=== PATIENT | female | born 1975 | race Caucasian/White ===

== ENCOUNTER → 2021-05-29 | Outpatient (CLI) | payer OTHER ==
--- NOTE | 2021-05-30 02:20 | MR ---
EXAMINATION TYPE: MR brain wo con DATE OF EXAM: 05/29/2021 COMPARISON: None HISTORY: Visual disturbance, recent head injury. Multiplanar multiecho imaging of the brain without contrast. Ventricles and sulci appear normal. There is no mass effect nor midline shift. There is no evidence o f intracranial hemorrhage. There is no evidence of cerebral edema. Cruz-white matter structures have fairly normal signal pattern. There is no evidence of a cortical infarct. There is no evidence of orbital mass. Sella turcica appears normal. Corpus callosum appears normal. B rainstem appears intact. IMPRESSION: Negative MR scan of the brain.
== END | disposition home or self-care (01) ==
LOC: RADMRIMAIN 18:14
PROVIDERS: ATTEND Pediatrics
DX: S09.90XA Unspecified injury of head, initial encounter (principal); H53.8 Other visual disturbances
CPT/HCPCS: 70551

== ENCOUNTER → 2021-05-29 | Outpatient (CLI) | payer OTHER ==
--- NOTE | 2021-05-29 20:02 | XR ---
EXAMINATION TYPE: XR lumbar spine 2 or 3V DATE OF EXAM: 05/29/2021 COMPARISON: NONE HISTORY: Dizziness TECHNIQUE: Review FINDINGS: Lumbar vertebra have normal spacing and alignment. Posterior elements are intact. Sacroilia c joints appear normal. IMPRESSION: Normal lumbar spine exam.
--- NOTE | 2021-05-29 20:04 | XR ---
EXAMINATION TYPE: XR cervical spine comp DATE OF EXAM: 05/29/2021 COMPARISON: NONE HISTORY: Neck pain. Dizziness. TECHNIQUE: 6 views FINDINGS: Cervical vertebra have mild straightening. There is some mild uncovertebral spurring and ri ght side neural foraminal impingement at C5-6. There are no cervical ribs. Atlantoaxial facet joint i s normal. IMPRESSION: Mild spondylotic changes at C5-6. No fracture.
--- NOTE | 2021-05-29 20:27 | XR ---
EXAMINATION TYPE: XR thoracic spine 2V DATE OF EXAM: 05/29/2021 COMPARISON: NONE HISTORY: Back pain. Dizziness. TECHNIQUE: 3 views FINDINGS: Thoracic vertebra have normal spacing and alignment. Posterior elements are intact. There i s no compression fracture. There is no evidence of thoracic paraspinal mass. IMPRESSION: Negative thoracic spine exam. No fracture seen.
== END | disposition home or self-care (01) ==
LOC: RADXRMAIN 18:40
PROVIDERS: ATTEND Pediatrics
DX: M47.812 Spondylosis without myelopathy or radiculopathy, cervical region (principal); M54.9 Dorsalgia, unspecified; R42 Dizziness and giddiness
CPT/HCPCS: 72050; 72070; 72100

== ENCOUNTER → 2021-11-28 | Outpatient (CLI) | payer OTHER ==
[2021-11-28 22:50] LABS: Basophils # (A) 0.02 X 10*3/uL (0.00-0.10); Basophils % (A) 0.3 %; Eosinophils # (A) 0.07 X 10*3/uL (0.04-0.35); HCT 39.9 % (37.2-46.3); HGB 12.9 g/dL (12.0-15.0); Immature Grans, Automated 0.3 %; Lymphocytes # (A) 2.09 X 10*3/uL (0.90-5.00); Lymphocytes % (A) 30.9 %; MCH 29.3 pg (27.0-32.0); MCHC 32.3 g/dL (32.0-37.0); MCV 90.5 fL (80.0-97.0); Mean Platelet Volume 10.5 fL (9.5-12.2); Monocytes # (A) 0.41 X 10*3/uL (0.20-1.00); Monocytes % (A) 6.1 %; NRBC Per 100 WBC 0 /100 WBCS (0.0-0.0); Neutrophils # (A) 4.16 X 10*3/uL (1.80-7.70); Neutrophils % (A) 61.4 %; Platelet Count 291 X 10*3/uL (140-440); RBC 4.41 X 10*6/uL (4.10-5.20); RDW 12.1 % (11.5-14.5); WBC 6.77 X 10*3/uL (4.50-10.00)
[2021-11-28 22:54] LABS: ALT 19 U/L (8-44); AST 17 U/L (13-35); African American GFR (CKD) 107.2 (60.0-200.0); Albumin 4.2 g/dL (3.8-4.9); Albumin/Globulin Ratio 1.54 (1.60-3.17); Alkaline Phosphatase 94 U/L (41-126); BUN/Creat Ratio 14.45 Ratio (12.00-20.00); Blood Urea Nitrogen 11.2 mg/dL (9.0-27.0); Calcium 9.1 mg/dL (8.7-10.3); Carbon Dioxide 25.9 mmol/L (20.0-27.5); Chloride 103 mmol/L (96-109); Chol/HDL Ratio 7.22 Ratio; Globulin 2.7 g/dL (1.6-3.3); Glucose 86 mg/dL (70-110); LDL Cholesterol,Calculated 175.8 mg/dL (0.0-131.0); Non-African American GFR(CKD) 92.5 (60.0-200.0); Potassium 4.2 mmol/L (3.5-5.5); Sodium 139 mmol/L (135-145)
[2021-11-28 22:55] LABS: Amylase 76 U/L (23-121); Lipase 103 U/L (14-63)
[2021-11-29 05:32] LABS: Microalbumin Creatinine Ratio <30 mg/g Creat (0-30)
== END | disposition home or self-care (01) ==
LOC: LABWHC1 09:30
PROVIDERS: ATTEND Physician Assistant
DX: Z00.01 Encounter for general adult medical examination with abnormal findings (principal); E11.9 Type 2 diabetes mellitus without complications; R10.12 Left upper quadrant pain; E78.5 Hyperlipidemia, unspecified
CPT/HCPCS: 36415; 80053; 80061; 82043; 82150; 82570; 83036; 83690; 85025

== ENCOUNTER → 2021-12-10 | Outpatient (CLI) | payer OTHER ==
--- NOTE | 2021-12-11 06:29 | CT ---
EXAMINATION TYPE: CT abdomen pelvis w con DATE OF EXAM: 12/10/2021 HISTORY: ELEVATED LIPASE. pain LUQ CT DLP: 669.3mGycm Automated Exposure Control for Dose Reduction was Utilized. CONTRAST: CT scan of the abdomen and pelvis is performed with IV Contrast, patient injected with 100ml mL of Is ovue 300. COMPARISON: None. FINDINGS: LUNG BASES: No significant abnormality is appreciated. LIVER/GB: No significant abnormality is appreciated. PANCREAS: Pancreas is overall normal in size without concerning solid or cystic mass or ductal dilata tion. No surrounding fat stranding or well-formed fluid collection. SPLEEN: Incidental small splenule inferiorly axial image 21. ADRENALS: No significant abnormality is seen. KIDNEYS: No significant abnormality is seen. BOWEL: The oral contrast extends to the level of rectum. No suspicious small or large bowel dilatatio n. Normal contrast-filled appendix. Diverticula in the left and sigmoid colon. No CT evidence for acu te diverticulitis. UTERUS/ADNEXA: Anteverted uterus. Small amount of free fluid in the left pelvis axial image 63. Ovar ies symmetric and felt to be within normal limits in size. LYMPH NODES: No greater than 1cm abdominal or pelvic lymph nodes are appreciated. OSSEOUS STRUCTURES: No significant abnormality is seen. OTHER: No significant additional abnormality is seen. IMPRESSION: Pancreas appears within normal limits. No CT evidence for complication related to acute p ancreatitis. Distal colonic diverticula without CT evidence for acute diverticulitis. No acute findin gs evident to account for patient's symptoms of left upper quadrant pain.
== END | disposition home or self-care (01) ==
LOC: RADCTMAIN 16:34
PROVIDERS: ATTEND Pediatrics
DX: K57.30 Diverticulosis of large intestine without perforation or abscess without bleeding (principal)
CPT/HCPCS: 74177; Q9967

== ENCOUNTER 2023-06-28 10:57 | Day surgery (SDC) | payer OTHER ==
[2023-06-23 14:14] VITALS: BMI 31.6
[~2023-06-28 10:57] MED LIST: LIDOCAINE 1% (10MG/ML) FOR IV START INTRADERMA PRN
[2023-06-28] MEDS: LACTATED RINGERS 1,000 ML IV SCH ×2 (11:27→12:04)
[2023-06-28 11:31] VITALS: TEMP 97.8
[2023-06-28] MEDS ORDERED: MIDAZOLAM 2 MG/2 ML VIAL ONE (12:06)
[2023-06-28] MEDS ORDERED: PROPOFOL 10 MG/ML 20 ML VIAL IV ONE (12:06)
[2023-06-28] MEDS ORDERED: LIDOCAINE 1% INJ 10MG/ML (20 ML MDV) ONE (12:06)
--- NOTE | 2023-06-28 12:26 | P.PCN ---
Date of Procedure: 06/28/23 Procedure(s) Performed: BRIEF HISTORY: Patient is a 47-year-old pleasant white female scheduled for an elective colonoscopy as a part of screening or colon cancer. f PROCEDURE PERFORMED: Colonoscopy. PREOPERATIVE DIAGNOSIS: SCREENING for colon cancer. IV sedation per Anesthesia. PROCEDURE: After informed consent was obtained, the patient, was brought into the endoscopy unit. IV sedation was administered by Anesthesia under continuous monitoring. Digital rectal examination was normal. Initially the Olympus CF-160 flexible video colonoscope was then inserted in the rectum, gradually advanced into the cecum without any difficulty. Careful examination was performed as the scope was gradually being withdrawn. Ileocecal valve and the appendiceal orifice were visualized and appeared normal. Prep was fair.. Mucosa of the cecum, ascending colon, transverse colon, descending colon, sigmoid colon, and rectum appeared normal. Retroflexion was performed in the rectum and no lesions were seen. The patient tolerated the procedure well. IMPRESSION: Normal-appearing colon from rectum to cecum with no evidence of colorectal neoplasia . RECOMMENDATIONS: Findings of this examination were discussed with the patient as well as a family. She was advised to have a repeat screening colonoscopy in 10 years.
[2023-06-28 13:11] VITALS: BP 116/70; PULSE 50; RESP 20
== END 2023-06-28 12:59 | disposition home or self-care (01) ==
LOC: ORWHC2ENDO 10:57
PROVIDERS: ATTEND Internal Medicine Gastroenterology
DX: Z12.11 Encounter for screening for malignant neoplasm of colon (principal); Z88.5 Allergy status to narcotic agent
CPT/HCPCS: 81025; 45378; J2250; J2001; J2704